=== PATIENT | male | born 1955 | race Caucasian/White ===

== ENCOUNTER 2024-03-13 04:31 | Observation (INO) ==
--- NOTE | 2024-03-13 04:50 | Emergency Department Note ---
Impression & Plan Acute and chronic respiratory failure with hypoxia, CKD (chronic kidney disease), Hypomagnesemia, Hyponatremia ED Provider Note ED Provider Note NAME: AMAIRANI GARCIA AGE:69 SEX: Male : 1955 ARRIVES VIA: EMS INFORMANT: Patient, EMS ED PROVIDER(s): Sanjuana Cyr DO CHIEF COMPLAINT: Shortness of breath HPI: This is a 69-year-old male presents emergency department due to concern for increased shortness of breath. Patient found by staff to be tachypneic with severe respiratory distress, cyanotic in appearance and oxygen saturations in the 70s. He was given 3 nebulizer treatments prior to EMS arrival as staff thought they heard wheezing. EMS reports patient was still in distressed upon their arrival, and staff at [facility] had transitioned him to BiPAP. EMS continued him on CPAP during their transportation and patient saturations improved to 90%. He was able to slowly began to talk to them and denied any other complaints. Patient denies feeling more short of breath today compared to normal. He states he does have a history of COPD and CKD and would be due for dialysis this morning. He denies missing or skipping any dialysis treatments. He states he was recently hospitalized for pneumonia. He states he does have oxygen to wear as needed, typically 5 L/min. He denies any current chest pain, abdominal pain, recent leg swelling, fevers, change in cough or change in sputum. Patient states has been on dialysis for 6 years, he does still make urine. PAST MEDICAL HISTORY:See Below PAST SURGICAL HISTORY:See Below FAMILY HISTORY:See Below SOCIAL HISTORY:See Below HOME MEDICATIONS:See Below ALLERGIES:See Below VITALS:See Below PHYSICAL EXAMINATION: GENERAL: alert, unwell appearing, well nourished, no distress, CPAP in place EYE EXAM: normal conjunctiva, PERRL and EOM's grossly intact OROPHARYNX: no exudate, no erythema, lips, buccal mucosa, and tongue normal and mucous membranes are dry NECK: supple, no nuchal rigidity, no adenopathy, non-tender LUNGS: Clear to auscultation. Normal chest wall mechanics, no w/r/r HEART: no murmurs, S1 normal and S2 normal ABDOMEN: abdomen soft, non-tender, normo-active bowel sounds, no masses, no rebound or guarding. SKIN: no rashes, petechiae, orbruising UPPER EXTREMITIES: upper extremities are grossly normal. FROM, nml pulses b/l. Fistula noted left upper extremity. LOWER EXTREMITIES: No pitting edema. FROM, nml pulses b/l. NEURO EXAM: Normal sensorium, cranial nerves II-XII grossly intact, normal speech, no facial droop,nogross weakness of arms, no gross weakness of legs. Gross sensation intact. No ataxia. Vital Signs: reviewed and remarkable Differential Diagnosis: pneumonia, bronchitis, COPD/Asthma exacerbation, pneumothorax, pulmonary embolism, congestive heart failure, acute coronary syndrome, as well as others were considered MEDICAL DECISION MAKING: This is a 69-year-old male presents emerged department by EMS on CPAP due to respiratory distress and hypoxia. Patient was awake and talking on arrival with improved appearance based on their description and oxygen saturations of 92%. Labs drawn and sent, IV established, EKG and chest x-ray performed at bedside interpreted by me and patient continued to be monitored on telemetry. Patient denied any chest pain abdominal pain, fevers or worsening cough. Nasal swab obtained and sent additionally. Chest x-ray with increased interstitial markings, no focal consolidation. Patient with recent admission for pneumonia although no available reports illness at this time. Will attempt to track down additional information from [facility] and ultimately from hospital where he was admitted. POC BMP with potassium of 5, elevated creatinine as patient is due for dialysis today. No acute EKG changes. Patient continue be monitored while on BiPAP here and continued to remain well-appearing regarding his respiratory effort and hypoxia. He was able to speak in full sentences and reported feeling improved. I did review information that came with from [facility] and case management was able to contact them and have them fax over his initial admission information. I did review his current medications. Patient noted to be anemic however stable compared to prior. Elevated creatinine likely from patient being due for dialysis. No significant hyperkalemia. Case discussed with the hospitalist team for additional evaluation and management. Labs were still pending at this time including the patient's CMP, troponin, and BNP as well as the bio fire. Ultimately bio fire negative. Troponin elevated however likely secondary to chronic kidney disease. BNP elevated as well however likely secondary to renal dysfunction. Consultation(s): 0530: Discussed with Dr. Abdullahi, [facility] hospitalist team, for additional evaluation and mgmt. 0600: Additional information including the admitting documentation to [facility] arrived on the patient. It notes that he was previously admitted for pneumonia and hypoxic respiratory failure at [facility]. I did ask the clerical secretary to contact them for further release of information regarding his hospitalization there. ER Treatment Provided: See below Diagnostics Interpreted By Me: -ECG: Normal sinus at 74, normal axis, normal intervals, no acute ST/T wave changes -Cardiac Monitoring: An order was placed for continuous cardiac monitoring. The monitor shows a rate of 70 with normal sinus rhythm. -Laboratory studies: As stated above and show below. -Imaging studies: cxr: Increased interstitial markings bilaterally worse on the left than right, no wide mediastinum, no pleural effusions, mild cardiomegaly Triage Nursing Note Reviewed Prior/Outside Records Reviewed -medication records from [facility] reviewed Critical Care: Critical care of 42 min performed to assess and manage high likelihood of life- threatening acute hypoxic respiratory, involving labs and imaging performed with assessment to evaluate respiratory distress and hypoxia diagnosis with frequent reassessment. This time includes bedside time, treatment discussions with patient/family/consultants, documentation time and excludes procedure time. Past Med/Surg History Problem List (Updated 03/13/24 @ 06:54 by Sanjuana Cyr, ) Hyponatremia (Acute) Hypomagnesemia (Acute) CKD (chronic kidney disease) (Acute) Acute and chronic respiratory failure with hypoxia (Acute) Social History Smoking Status: Former smoker Preferred Language: Croatian Feels Safe at Home: Yes Allergies Allergies Allergy/AdvReac Type Severity Reaction Status Date / Time No Known Drug Allergies Allergy Unknown Unknown Verified 03/13/24 04:59 Home Meds Home Medications Medication Instructions Recorded Confirmed acetaminophen 650 mg tablet 650 mg PO Q4H PRN Pain, Mild 03/13/24 03/13/24 amlodipine 10 mg tablet 10 mg PO PM 03/13/24 03/13/24 atorvastatin 20 mg tablet 20 mg PO PM 03/13/24 03/13/24 bisacodyl 10 mg rectal suppository 10 mg ND DAILY PRN Constipation 03/13/24 03/13/24 bisoprolol fumarate 5 mg tablet 5 mg PM 03/13/24 03/13/24 budesonide 0.25 mg/2 mL suspension See Protocol BID 03/13/24 03/13/24 for nebulization calcitriol 0.25 mcg capsule 0.25 mcg PO BLANK 03/13/24 03/13/24 cinacalcet 90 mg tablet 90 mg PO BLANK 03/13/24 03/13/24 darbepoetin son in polysorbat 100 100 mcg BLANK 03/13/24 03/13/24 mcg/0.5 mL in polysorbate injection syringe docusate sodium 100 mg capsule 100 mg PO BID 03/13/24 03/13/24 docusate sodium 50 mg capsule 50 mg PO DAILY PRN Constipation 03/13/24 03/13/24 formoterol fumarate 20 mcg/2 mL 2 ml inhalation BID 03/13/24 03/13/24 solution for nebulization heparin, porcine (PF) 5,000 5,000 unit subcut Q12H 03/13/24 03/13/24 unit/mL injection syringe ipratropium bromide 0.02 % 2.5 ml inhalation QID 03/13/24 03/13/24 solution for inhalation levothyroxine 200 mcg tablet 200 mcg PO DAILY 03/13/24 03/13/24 lidocaine-prilocaine 2.5 %-2.5 % 1 applic topical BLANK 03/13/24 03/13/24 topical cream ondansetron 4 mg disintegrating 4 mg PO Q4-5H PRN Nausea And 03/13/24 03/13/24 tablet Vomiting pantoprazole 40 mg tablet,delayed 40 mg PO BIDWMEAL 03/13/24 03/13/24 release polyethylene glycol 17 ea miscellaneous DAILY PRN 03/13/24 03/13/24 Constipation prednisone 10 mg tablet 10 mg PO DAILY 03/13/24 03/13/24 sacubitril 24 mg-valsartan 26 mg 1 tab PO BID 03/13/24 03/13/24 tablet sertraline 50 mg tablet 50 mg PO QPM 03/13/24 03/13/24 Results & Data (ED) Vital Signs Vital Signs - 24 hr 03/13/24 04:37 03/13/24 04:38 03/13/24 04:43 Temperature 36.5 C Temperature Source Axillary Pulse Rate 74 73 71 Pulse Rate from SpO2 Sensor Respiratory Rate 15 23 Respiratory Effort / Characteristics Non-Labored Spontaneous Respiratory Depth Normal Respiratory Pattern Regular Blood Pressure 171/87 H Blood Pressure Mean 115 Pulse Oximetry 93 94 Oxygen Delivery Method BiPAP Fraction of Inspired Oxygen 50 Sepsis Recent Fever Within 48 Hours No Sepsis New/Unexplained Change in Mental Status No Sepsis Action Taken by Nursing No Action Required 03/13/24 04:44 03/13/24 04:44 03/13/24 05:06 Temperature Temperature Source Pulse Rate 72 Pulse Rate from SpO2 Sensor 74 Respiratory Rate 20 Respiratory Effort / Characteristics Respiratory Depth Respiratory Pattern Blood Pressure 176/84 H Blood Pressure Mean 114 Pulse Oximetry 94 93 Oxygen Delivery Method BiPAP BiPAP BiPAP Fraction of Inspired Oxygen 50 Sepsis Recent Fever Within 48 Hours Sepsis New/Unexplained Change in Mental Status Sepsis Action Taken by Nursing 03/13/24 05:50 Temperature Temperature Source Pulse Rate 71 Pulse Rate from SpO2 Sensor 74 Respiratory Rate 30 H Respiratory Effort / Characteristics Respiratory Depth Respiratory Pattern Blood Pressure Blood Pressure Mean Pulse Oximetry 90 Oxygen Delivery Method BiPAP Fraction of Inspired Oxygen Sepsis Recent Fever Within 48 Hours Sepsis New/Unexplained Change in Mental Status Sepsis Action Taken by Nursing Laboratory Data 03/13/24 04:40 03/13/24 04:40 Lab Results 03/13/24 03/13/24 Range/Units 04:40 04:46 WBC 9.82 (4.8-10.8) K/ul RBC 2.85 L (4.70-6.10) M/uL Hgb 10.1 L (14.0-18.0) g/dl POC Hgb 10.2 L (14.0-18.0) g/dl Hct 31.7 L (42.0-52.0) % POC Hct 30 L (42-52) % MCV 111.2 H (80.0-100.0) fL MCH 35.4 H (25.0-34.0) pg MCHC 31.9 L (32.0-36.0) g/dL RDW Std Deviation 79.6 H (36.4-46.3) fL RDW Coeff of Gabriela 19.2 H (11.5-14.5) % Plt Count 167 (130-400) K/uL MPV 10.5 (9.4-12.4) fL Immature Gran % (Auto) 0.7 % Neut % (Auto) 79.6 % Lymph % (Auto) 10.8 % Ward % (Auto) 6.7 % Eos % (Auto) 1.9 % Baso % (Auto) 0.3 % Neut # (Auto) 7.81 H (1.40-6.50) K/uL Lymph # (Auto) 1.06 L (1.20-3.40) K/uL Ward # (Auto) 0.66 H (0.11-0.59) K/uL Eos # (Auto) 0.19 (0.00-0.50) K/uL Baso # (Auto) 0.03 (0.00-0.20) K/uL Immature Gran # (Auto) 0.07 (0.01-0.20) K/uL Polychromasia 1+ Macrocytosis Present VBG pH 7.45 H (7.36-7.41) VBG pCO2 44 (38-50) mmHg VBG pO2 Not Reportable VBG HCO3 31 mmol/L VBG O2 Saturation 65.5 % VBG Base Excess 5.8 mEq/L POC Sodium 133 L (135-144) mmol/L Sodium 135 L (136-145) mmol/L POC Potassium 5.0 (3.3-5.0) mmol/L Potassium 4.8 (3.5-5.1) mmol/L POC Chloride 96 L (101-112) mmol/L Chloride 95 L (98-107) mmol/L Carbon Dioxide 29 (21-32) mmol/L POC Total CO2 30 (24-31) mmol/L Anion Gap 11 (3-11) POC Anion Gap 13.0 L (16-25) mmol/L POC BUN 60 H (7-18) mg/dl BUN 55 H (6-23) mg/dl Creatinine 4.55 H* (0.6-1.4) mg/dl POC Creatinine 4.7 H* (0.6-1.3) mg/dl Est Cr Clr Drug Dosing 14.9 ml/min Est GFR ( Amer) 14.0 ml/min Est GFR (Non-Af Amer) 12.1 ml/min BUN/Creatinine Ratio 12.1 (10-20) Glucose 82 (70-99(Fasting)) mg/dl POC Glucose (other) 82 (70-99) mg/dl Calcium 8.8 (8.6-10.3) mg/dl POC Ioniz Calcium Almaz 1.03 L (1.12-1.32) mmol/l Magnesium 1.6 L (1.7-2.4) mg/dl Total Bilirubin 0.7 (0.2-1.0) mg/dl AST 15 (13-39) U/L ALT 14 (7-52) U/L Alkaline Phosphatase 128 H (34-104) U/L Troponin I High Sens 27.4 H (0-20) pg/ml B-Natriuretic Peptide 4612 H (0-100) pg/ml Total Protein 6.0 (6.0-8.3) gm/dl Albumin 4.0 (3.4-5.0) gm/dl Globulin 2.0 L (2.5-4.0) gm/dl Albumin/Globulin Ratio 2.0 (0.9-2) TSH 8.922 H (0.300-4.500) uIu/ml Adenovirus (PCR) Not Detected (NotDetected) B. pertussis DNA (PCR) Not Detected (NotDetected) B.parapertussis DNA PCR Not Detected (NotDetected) C. pneumoniae DNA (PCR) Not Detected (NotDetected) Coronavirus OC43 (PCR) Not Detected (NotDetected) Coronavirus HKU1 (PCR) Not Detected (NotDetected) Coronavirus 229E (PCR) Not Detected (NotDetected) SARS-CoV-2 (PCR) Not Detected (NotDetected) Coronavirus NL63 (PCR) Not Detected (NotDetected) Human Metapneumovir PCR Not Detected (NotDetected) Influenza Type A (PCR) Not Detected (NotDetected) Influenza Type B (PCR) Not Detected (NotDetected) M. pneumoniae (PCR) Not Detected (NotDetected) Parainfluenza 1 (PCR) Not Detected (NotDetected) Parainfluenza 2 (PCR) Not Detected (NotDetected) Parainfluenza 3 (PCR) Not Detected (NotDetected) Parainfluenza 4 (PCR) Not Detected (NotDetected) RSV (PCR) Not Detected (NotDetected) Entero/Rhino (PCR) Not Detected (NotDetected) Administered Medications Discontinued Medications Furosemide (Furosemide 40 Mg/4 Ml Vial) 100 mg IV ONE ONE Stop: 03/13/24 05:36 Last Admin: 03/13/24 06:25 Dose: 100 mg Documented By: GODWIN Discharge Plan Visit Data Chief Complaint: Shortness of Breath/Dyspnea Stated Complaint: RESPATORY DISTRESS ED Provider: Sanjuana Cyr Discharge Problem: Acute and chronic respiratory failure with hypoxia, CKD (chronic kidney disease), Hypomagnesemia, Hyponatremia Forms Stand Alone Forms: My [facility] Prescriptions Prescriptions: No Action prednisone 10 mg Tablet 10 mg PO DAILY atorvastatin 20 mg Tablet 20 mg PO PM docusate sodium 50 mg Capsule 50 mg PO DAILY PRN (Reason: Constipation) acetaminophen 650 mg Tablet 650 mg PO Q4H PRN (Reason: Pain, Mild) lidocaine-prilocaine 2.5-2.5 % Cream 1 applic topical BLANK Rx Instructions: QMWF bisoprolol fumarate 5 mg Tablet 5 mg PM amlodipine 10 mg Tablet 10 mg PO PM bisacodyl 10 mg Suppository 10 mg ND DAILY PRN (Reason: Constipation) pantoprazole 40 mg Tablet,Delayed Release (Dr/Ec) 40 mg PO BIDWMEAL docusate sodium 100 mg Capsule 100 mg PO BID budesonide 0.25 mg/2 mL Suspension For Nebulization See Protocol BID Protocol: Nursing Decision Medication Order Protocol Text: 1. Dispensed by Pharmacy (Requires a written order by the nurse, unless noted otherwise). Artificial Saliva Aerozoin [place] Cepacol Lozenges (in Automated Drug Distribution Machine) Eucerin Cream Lacrilube Lidocaine (Xylocaine) 2% Jelly for urinary catheter insertion) Miconazole (Desenex) Powder [place] Nasal [place] (or generic) 2. On PAR from Supply Distribution (no written order required) A&D Ointment Artificial Tears Biotene Oral [place] Desitin Ointment Dermoplast [place] Eucerin Lotion Hydrogen peroxide Lanolin Lip Savvy Tucks White Petrolatum Zinc Oxide levothyroxine 200 mcg Tablet 200 mcg PO DAILY ondansetron 4 mg Tablet,Disintegrating 4 mg PO Q4-5H PRN (Reason: Nausea And Vomiting) sertraline 50 mg Tablet 50 mg PO QPM calcitriol 0.25 mcg Capsule 0.25 mcg PO BLANK Rx Instructions: Q Tu,Thur,Sat ipratropium bromide 0.02 % Solution 2.5 ml INHALATION QID polyethylene glycol Powder 17 ea miscellaneous DAILY PRN (Reason: Constipation) cinacalcet 90 mg Tablet 90 mg PO BLANK Rx Instructions: Qdinner heparin, porcine (PF) 5,000 unit/mL Syringe 5,000 unit SUBCUT Q12H darbepoetin son in polysorbat 100 mcg/0.5 mL Syringe 100 mcg BLANK Rx Instructions: Q7days formoterol fumarate 20 mcg/2 mL Solution For Nebulization 2 ml INHALATION BID sacubitril-valsartan 24-26 mg Tablet 1 tab PO BID Referrals Referrals: Hung Arreola, [Outside Practitioners] -
[2024-03-13 04:55] LABS: Base Excess VBG 5.8 mEq/L; HCO3 VBG 31 mmol/L; Oxygen Saturation VBG 65.5 %; PCO2 VBG 44 mmHg (38-50); pH VBG 7.45 (7.36-7.41)
[2024-03-13 05:00] LABS: iSTAT Creatinine 4.7 mg/dl (0.6-1.3); iSTAT Hemoglobin 10.2 g/dl (14.0-18.0); iSTAT Ionized Calcium 1.03 mmol/l (1.12-1.32)
[2024-03-13 05:05] LABS: Basophils # (auto) 0.03 K/uL (0.00-0.20); Basophils % (auto) 0.3 %; Eosinophils # (auto) 0.19 K/uL (0.00-0.50); Eosinophils % (auto) 1.9 %; Hematocrit (blood only) 31.7 % (42.0-52.0); Hemoglobin 10.1 g/dl (14.0-18.0); Immature Granulocytes # (auto) 0.07 K/uL (0.01-0.20); Immature Granulocytes % (auto) 0.7 %; Lymphocytes # (auto) 1.06 K/uL (1.20-3.40); Lymphocytes % (auto) 10.8 %; Mean Corpuscular Hemoglobin 35.4 pg (25.0-34.0); Mean Corpuscular Hgb Conc 31.9 g/dL (32.0-36.0); Mean Corpuscular Volume 111.2 fL (80.0-100.0); Mean Platelet Volume 10.5 fL (9.4-12.4); Monocytes # (auto) 0.66 K/uL (0.11-0.59); Monocytes % (auto) 6.7 %; Neutrophils # (auto) 7.81 K/uL (1.40-6.50); Neutrophils % (auto) 79.6 %; Platelet Count 167 K/uL (130-400); RDW Coefficient of Variation 19.2 % (11.5-14.5); RDW Standard Deviation 79.6 fL (36.4-46.3); Red Blood Count 2.85 M/uL (4.70-6.10); White Blood Count 9.82 K/ul (4.8-10.8)
[2024-03-13 05:30] LABS: Macrocytosis Present; Polychromasia 1+
[2024-03-13 05:36] LABS: BUN Creatinine Ratio 12.1 (10-20); Bilirubin,Total 0.7 mg/dl (0.2-1.0); Calcium 8.8 mg/dl (8.6-10.3); Creatinine Clr Calc Pharmacy 14.9 ml/min; Est GFR (Non-African American) 12.1 ml/min; Magnesium 1.6 mg/dl (1.7-2.4); Potassium 4.8 mmol/L (3.5-5.1); Troponin I High Sensitivity 27.4 pg/ml (0-20)
[2024-03-13 05:46] LABS: Adenovirus PCR Not Detected (NotDetected); Bordetella parapertussis PCR Not Detected (NotDetected); Bordetella pertussis PCR Not Detected (NotDetected); Chlamydia pneumoniae PCR Not Detected (NotDetected); Coronavirus 229E PCR Not Detected (NotDetected); Coronavirus CoV-2 (COVID19)PCR Not Detected (NotDetected); Coronavirus HKU1 PCR Not Detected (NotDetected); Coronavirus NL63 PCR Not Detected (NotDetected); Coronavirus OC43PCR Not Detected (NotDetected); Human Metapneumovirus PCR Not Detected (NotDetected); Influenza A PCR Not Detected (NotDetected); Influenza B PCR Not Detected (NotDetected); Mycoplasma pneumoniae PCR Not Detected (NotDetected); Parainfluenza Virus 1 PCR Not Detected (NotDetected); Parainfluenza Virus 2 PCR Not Detected (NotDetected); Parainfluenza Virus 3 PCR Not Detected (NotDetected); Parainfluenza Virus 4 PCR Not Detected (NotDetected); Respiratory Syncytial VirusPCR Not Detected (NotDetected); Rhinovirus/Enterovirus PCR Not Detected (NotDetected)
--- NOTE | 2024-03-13 06:16 | History & Physical Report ---
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 Heparin subcu Full code I discussed case with Dr. Cruz of Nephrology. Total critical care time was 45 minutes. Text document was generated using [employer] voice recognition software. It may contain grammatical or spelling errors. Kindly contact undersigned for clarification of any documentation item in question. History of Present Illness Chief Complaint: Shortness of breath, hypoxemia Primary Care Provider: Len Ibrahim, History obtained from patient and records. 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 Recent prolonged confinement at [facility] from February 07 to March 06, 2024 for sigmoid colitis, COPD exacerbation and pneumonia. 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 Patient with sudden onset SOB last night. No unusual cough symptoms or chest pain. Compliant with Wednesday dialysis. O2 sats 60s to 70s upon EMS arrival. Patient placed on BiPAP. Patient brought to ER for evaluation. Medical History as above Surgical History : Prostatectomy, appendectomy Family History : Prostate cancer, breast cancer, brain cancer, DM, heart disease, stroke Personal/Social history : Past tobacco abuse, no EtOH intake, retired salesman Allergies Allergy/AdvReac Type Severity Reaction Status Date / Time No Known Drug Allergies Allergy Unknown Unknown Verified 03/13/24 04:59 Home Medications Medication Instructions Recorded Confirmed Type acetaminophen 650 mg tablet 650 mg PO Q4H PRN Pain, Mild 03/13/24 03/13/24 History amlodipine 10 mg tablet 10 mg PO PM 03/13/24 03/13/24 History atorvastatin 20 mg tablet 20 mg PO PM 03/13/24 03/13/24 History bisacodyl 10 mg rectal suppository 10 mg AK DAILY PRN Constipation 03/13/24 03/13/24 History bisoprolol fumarate 5 mg tablet 5 mg PM 03/13/24 03/13/24 History budesonide 0.25 mg/2 mL suspension See Protocol BID 03/13/24 03/13/24 History for nebulization calcitriol 0.25 mcg capsule 0.25 mcg PO BLANK 03/13/24 03/13/24 History cinacalcet 90 mg tablet 90 mg PO BLANK 03/13/24 03/13/24 History darbepoetin son in polysorbat 100 100 mcg BLANK 03/13/24 03/13/24 History mcg/0.5 mL in polysorbate injection syringe docusate sodium 100 mg capsule 100 mg PO BID 03/13/24 03/13/24 History docusate sodium 50 mg capsule 50 mg PO DAILY PRN Constipation 03/13/24 03/13/24 History formoterol fumarate 20 mcg/2 mL 2 ml inhalation BID 03/13/24 03/13/24 History solution for nebulization heparin, porcine (PF) 5,000 5,000 unit subcut Q12H 03/13/24 03/13/24 History unit/mL injection syringe ipratropium bromide 0.02 % 2.5 ml inhalation QID 03/13/24 03/13/24 History solution for inhalation levothyroxine 200 mcg tablet 200 mcg PO DAILY 03/13/24 03/13/24 History lidocaine-prilocaine 2.5 %-2.5 % 1 applic topical BLANK 03/13/24 03/13/24 History topical cream ondansetron 4 mg disintegrating 4 mg PO Q4-5H PRN Nausea And 03/13/24 03/13/24 History tablet Vomiting pantoprazole 40 mg tablet,delayed 40 mg PO BIDWMEAL 03/13/24 03/13/24 History release polyethylene glycol 17 ea miscellaneous DAILY PRN 03/13/24 03/13/24 History Constipation prednisone 10 mg tablet 10 mg PO DAILY 03/13/24 03/13/24 History sacubitril 24 mg-valsartan 26 mg 1 tab PO BID 03/13/24 03/13/24 History tablet sertraline 50 mg tablet 50 mg PO QPM 03/13/24 03/13/24 History Past Med/Surg History Problem List (Updated 03/13/24 @ 11:28 by Ham Hopper MD) ESRD (end stage renal disease) on dialysis Hyponatremia (Acute) Hypomagnesemia (Acute) CKD (chronic kidney disease) (Acute) Acute and chronic respiratory failure with hypoxia (Acute) Social History Smoking Status: Former smoker Hx Alcohol Use: No Hx Substance Use: No Preferred Language: Mongolian Communication Ability: Effective 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 Beliefs That Will Affect Care: None Current Living Situation: Spouse Other Information That Helps Us Care for You: No Feels Safe at Home: Yes Safety Concerns: Feels Safe At This Time Assistive Devices: Oxygen - Continuous Review of Systems Review of Systems: As per HPI, all other systems reviewed and negative Physical Exam Physical Exam: GENERAL: Slightly uncomfortable, minimal respiratory distress SKIN: Pallor, warm HEENT: Pale palpebral conjunctivae, no ptosis, dry buccal mucosa, BiPAP in place NECK : Supple, no tenderness CHEST : Decreased breath sounds, no tenderness HEART : RRR, no obvious murmurs ABDOMEN: Some distention, nontender EXTREMITIES : Minimal LE swelling, no LE tenderness, no other conspicuous deformities noted NEUROLOGIC : Coherent, no facial asymmetry, no other gross focality Results & Data Results & Data Vital Signs (Past 12 Hours) Vital Signs Temp Pulse Resp BP Pulse Ox O2 Del Method FiO2 03/13/24 05:50 71 30 H 90 BiPAP 03/13/24 05:06 72 20 176/84 H 93 BiPAP 03/13/24 04:44 BiPAP 50 03/13/24 04:44 94 BiPAP 03/13/24 04:43 71 23 94 50 03/13/24 04:38 73 03/13/24 04:37 36.5 C 74 15 171/87 H 93 BiPAP Laboratory Results Laboratory Results WBC 9.82 K/ul (4.8-10.8) 03/13/24 04:40 RBC 2.85 M/uL (4.70-6.10) L 03/13/24 04:40 Hgb 10.1 g/dl (14.0-18.0) L 03/13/24 04:40 POC Hgb 10.2 g/dl (14.0-18.0) L 03/13/24 04:46 Hct 31.7 % (42.0-52.0) L 03/13/24 04:40 POC Hct 30 % (42-52) L 03/13/24 04:46 MCV 111.2 fL (80.0-100.0) H 03/13/24 04:40 MCH 35.4 pg (25.0-34.0) H 03/13/24 04:40 MCHC 31.9 g/dL (32.0-36.0) L 03/13/24 04:40 RDW Std Deviation 79.6 fL (36.4-46.3) H 03/13/24 04:40 RDW Coeff of Gabriela 19.2 % (11.5-14.5) H 03/13/24 04:40 Plt Count 167 K/uL (130-400) 03/13/24 04:40 MPV 10.5 fL (9.4-12.4) 03/13/24 04:40 Immature Gran % (Auto) 0.7 % 03/13/24 04:40 Neut % (Auto) 79.6 % 03/13/24 04:40 Lymph % (Auto) 10.8 % 03/13/24 04:40 [place] % (Auto) 6.7 % 03/13/24 04:40 Eos % (Auto) 1.9 % 03/13/24 04:40 Baso % (Auto) 0.3 % 03/13/24 04:40 Neut # (Auto) 7.81 K/uL (1.40-6.50) H 03/13/24 04:40 Lymph # (Auto) 1.06 K/uL (1.20-3.40) L 03/13/24 04:40 [place] # (Auto) 0.66 K/uL (0.11-0.59) H 03/13/24 04:40 Eos # (Auto) 0.19 K/uL (0.00-0.50) 03/13/24 04:40 Baso # (Auto) 0.03 K/uL (0.00-0.20) 03/13/24 04:40 Immature Gran # (Auto) 0.07 K/uL (0.01-0.20) 03/13/24 04:40 Polychromasia 1+ 03/13/24 04:40 Macrocytosis Present 03/13/24 04:40 VBG pH 7.45 (7.36-7.41) H 03/13/24 04:40 VBG pCO2 44 mmHg (38-50) 03/13/24 04:40 VBG pO2 Not Reportable 03/13/24 04:40 VBG HCO3 31 mmol/L 03/13/24 04:40 VBG O2 Saturation 65.5 % 03/13/24 04:40 VBG Base Excess 5.8 mEq/L 03/13/24 04:40 POC Sodium 133 mmol/L (135-144) L 03/13/24 04:46 Sodium 135 mmol/L (136-145) L 03/13/24 04:40 POC Potassium 5.0 mmol/L (3.3-5.0) 03/13/24 04:46 Potassium 4.8 mmol/L (3.5-5.1) 03/13/24 04:40 POC Chloride 96 mmol/L (101-112) L 03/13/24 04:46 Chloride 95 mmol/L (98-107) L 03/13/24 04:40 Carbon Dioxide 29 mmol/L (21-32) 03/13/24 04:40 POC Total CO2 30 mmol/L (24-31) 03/13/24 04:46 Anion Gap 11 (3-11) 03/13/24 04:40 POC Anion Gap 13.0 mmol/L (16-25) L 03/13/24 04:46 POC BUN 60 mg/dl (7-18) H 03/13/24 04:46 BUN 55 mg/dl (6-23) H 03/13/24 04:40 Creatinine 4.55 mg/dl (0.6-1.4) H* 03/13/24 04:40 POC Creatinine 4.7 mg/dl (0.6-1.3) H* 03/13/24 04:46 Est Cr Clr Drug Dosing 14.9 ml/min 03/13/24 04:40 Est GFR ( Amer) 14.0 ml/min 03/13/24 04:40 Est GFR (Non-Af Amer) 12.1 ml/min 03/13/24 04:40 BUN/Creatinine Ratio 12.1 (10-20) 03/13/24 04:40 Glucose 82 mg/dl (70-99(Fasting)) 03/13/24 04:40 POC Glucose (other) 82 mg/dl (70-99) 03/13/24 04:46 Calcium 8.8 mg/dl (8.6-10.3) 03/13/24 04:40 POC Ioniz Calcium Almaz 1.03 mmol/l (1.12-1.32) L 03/13/24 04:46 Magnesium 1.6 mg/dl (1.7-2.4) L 03/13/24 04:40 Total Bilirubin 0.7 mg/dl (0.2-1.0) 03/13/24 04:40 AST 15 U/L (13-39) 03/13/24 04:40 ALT 14 U/L (7-52) 03/13/24 04:40 Alkaline Phosphatase 128 U/L (34-104) H 03/13/24 04:40 Troponin I High Sens 27.4 pg/ml (0-20) H 03/13/24 04:40 B-Natriuretic Peptide 4612 pg/ml (0-100) H 03/13/24 04:40 Total Protein 6.0 gm/dl (6.0-8.3) 03/13/24 04:40 Albumin 4.0 gm/dl (3.4-5.0) 03/13/24 04:40 Globulin 2.0 gm/dl (2.5-4.0) L 03/13/24 04:40 Albumin/Globulin Ratio 2.0 (0.9-2) 03/13/24 04:40 Adenovirus (PCR) Not Detected (NotDetected) 03/13/24 04:40 B. pertussis DNA (PCR) Not Detected (NotDetected) 03/13/24 04:40 B.parapertussis DNA PCR Not Detected (NotDetected) 03/13/24 04:40 C. pneumoniae DNA (PCR) Not Detected (NotDetected) 03/13/24 04:40 Coronavirus OC43 (PCR) Not Detected (NotDetected) 03/13/24 04:40 Coronavirus HKU1 (PCR) Not Detected (NotDetected) 03/13/24 04:40 Coronavirus 229E (PCR) Not Detected (NotDetected) 03/13/24 04:40 SARS-CoV-2 (PCR) Not Detected (NotDetected) 03/13/24 04:40 Coronavirus NL63 (PCR) Not Detected (NotDetected) 03/13/24 04:40 Human Metapneumovir PCR Not Detected (NotDetected) 03/13/24 04:40 Influenza Type A (PCR) Not Detected (NotDetected) 03/13/24 04:40 Influenza Type B (PCR) Not Detected (NotDetected) 03/13/24 04:40 M. pneumoniae (PCR) Not Detected (NotDetected) 03/13/24 04:40 Parainfluenza 1 (PCR) Not Detected (NotDetected) 03/13/24 04:40 Parainfluenza 2 (PCR) Not Detected (NotDetected) 03/13/24 04:40 Parainfluenza 3 (PCR) Not Detected (NotDetected) 03/13/24 04:40 Parainfluenza 4 (PCR) Not Detected (NotDetected) 03/13/24 04:40 RSV (PCR) Not Detected (NotDetected) 03/13/24 04:40 Entero/Rhino (PCR) Not Detected (NotDetected) 03/13/24 04:40 Diagnostic Findings Chest x-ray cardiomegaly, congestion more in the left EKG as per my interpretation : Rate 75, NSR, normal axis, T wave abnormalities lateral leads
[2024-03-13] MEDS ORDERED: PROMETHAZINE 6.25 MG/50.25 ML BAG IV PRN (06:20)
[2024-03-13] MEDS ORDERED: bisacodyL 10 MG SUPP PR PRN (06:22)
[2024-03-13] MEDS: FUROSEMIDE 40 MG/4 ML VIAL IV ONE (06:25)
[2024-03-13 06:43] LABS: Thyroid Stimulating Hormone 8.922 uIu/ml (0.300-4.500)
[2024-03-13] MEDS: OPTIRAY 320 125ml IV ONE (06:46)
--- NOTE | 2024-03-13 06:59 | XRay Report ---
XR chest 1V portable CLINICAL HISTORY: Dyspnea TECHNIQUE: Single frontal radiograph of the chest was obtained. Comparison: None available at the time of this dictation. FINDINGS: No lines and tubes are seen. Cardiomegaly is noted. The aortic arch is calcified. Multifocal airspace opacities are seen. Small left pleural effusion. IMPRESSION: Multifocal airspace opacities may represent atelectasis, pneumonia, and/or aspiration. Cardiomegaly a nd small left pleural effusion. ACT 112: Negative or not required by law. Electronically signed by: Hung Johnston M.D. 03/13/2024 6:58 AM
--- NOTE | 2024-03-13 07:05 | CT Scan Report ---
CT angio chest PE protocol CLINICAL HISTORY: sudden sob, esrs, px david have dialysis today TECHNIQUE: Multidetector row helical CT of the chest was performed with angiographic protocol. Lopez l and sagittal reformations were obtained. Coronal and sagittal MIPS were obtained from the axial mj a set and were submitted for review. Automated dose lowering techniques and/or adjustment according to patient size were utilized for this exam. CT DOSE: 847.86 mGy.cm Comparison: Comparison is made to chest radiograph 03/13/2024 FINDINGS: Lungs and pleura: Diffuse centrilobular emphysema is seen most prominent in the upper lobes. Small bi lateral pleural effusions and underlying atelectasis are seen. Heart and pericardium: Cardiomegaly is seen with biatrial enlargement. Vessels: No evidence of pulmonary embolism. Pulmonary trunk measures 37 mm in diameter. Incidental no te is made of a left subclavian stent. Mediastinum and danielle: Subcentimeter lymph nodes are seen. Chest wall and lower neck: Unremarkable. Abdomen: A hiatal hernia is seen. Multicystic appearance of the kidneys noted. Bones: Degenerative changes in the thoracic spine. IMPRESSION: 1. No pulmonary embolus. 2. Extensive emphysema. Bronchial wall thickening may represent infectious/inflammatory airways dise ase. Pulmonary hypertension. 3. Small bilateral pleural effusions. ACT 112: Negative or not required by law. Electronically signed by: Hung Johnston M.D. 03/13/2024 7:03 AM
[2024-03-13] MEDS ORDERED: POLYETHYLENE (MIRALAX) 17 GM PACK PO PRN (07:06)
[2024-03-13] MEDS: ALBUT/IPRATROP 3MG/0.5MG NEB 3 ML VIAL NEB STA (07:07)
[2024-03-13] MEDS: MAGNESIUM SULFATE / D5W 1 GM/100 ML BAG IV ONE (07:16)
[2024-03-13 07:18] LABS: T4 Free Thyroxine 1.05 ng/dl (0.61-1.60)
--- NOTE | 2024-03-13 11:26 | Nephrology Consultation ---
Date of Consultation March 13, 2024 Assessment & Plan (1) Acute and chronic respiratory failure with hypoxia: He has Advanced COPD already with high o2 need. Lot of it is Chronic. CXR and CTA reviewed and shows--Multifocal airspace opacities may represent atelectasis, pneumonia, and/or aspiration. Cardiomegaly and small left pleural effusion. will try to remove 3--3.5 kilo today with dialysis. However pulm/infection issues also playing major role here. Would give AbX also. (2) ESRD (end stage renal disease) on dialysis: Chronic ESRD on dialysis with AVF for last few years. ESRD sec to PCKD. has good AVF. lab works is consistent with ESRD . K is fine No severe fluid overload noted but given presenting Symptom and CXR/CT findings will try 3.5 kilo fluid off. hgb is fine at 10+. will give Epogen similar to his dose at rehab. Plan Time spent 55 mins in total with emergent Call taken from ED and emergent dialysis plan made. Also coordinating with outpt dialysis and rehab hospital. History of Present Illness Attending Physician: Valerie Taylor MD History of Present Illness 69/M with ESRD on Dialysis --MWF and has been on dialysis last few years at [facility] [place]. 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 Recent prolonged confinement at [facility] from February 07 to March 06, 2024 for sigmoid colitis, COPD exacerbation and pneumonia. 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 He has been there for about 1 week and had dialysis Wednesday. . Patient transferred from rehab to ED because of sudden onset SOB last night and Hypoxia.. No unusual cough symptoms or chest pain. Compliant with Wednesday dialysis. O2 sats 60s to 70s upon EMS arrival. Patient placed on BiPAP. We then proceeded with emergent dialysis. However patient got back to baseline o2 status quickly. getting dialysis now. ROS-----Some SOB but feels he is now back to baseline status already. Physical Exam Physical Exam: GENERAL: Mild respiratory distress HEENT: Pale . No JVD. Neck Supple. CHEST : Decreased breath sounds, no tenderness HEART : RRR, no obvious murmurs ABDOMEN: Soft nontender EXTREMITIES : No edema. AVF in place left UE NEUROLOGIC : Coherent, no facial asymmetry, no other gross focality Allergies Allergy/AdvReac Type Severity Reaction Status Date / Time No Known Drug Allergies Allergy Unknown Unknown Verified 03/13/24 04:59 Home Medications Medication Instructions Recorded Confirmed Type acetaminophen 650 mg tablet 650 mg PO Q4H PRN Pain, Mild 03/13/24 03/13/24 History amlodipine 10 mg tablet 10 mg PO PM 03/13/24 03/13/24 History atorvastatin 20 mg tablet 20 mg PO PM 03/13/24 03/13/24 History bisacodyl 10 mg rectal suppository 10 mg ID DAILY PRN Constipation 03/13/24 03/13/24 History bisoprolol fumarate 5 mg tablet 5 mg PM 03/13/24 03/13/24 History budesonide 0.25 mg/2 mL suspension See Protocol BID 03/13/24 03/13/24 History for nebulization calcitriol 0.25 mcg capsule 0.25 mcg PO BLANK 03/13/24 03/13/24 History cinacalcet 90 mg tablet 90 mg PO BLANK 03/13/24 03/13/24 History darbepoetin son in polysorbat 100 100 mcg BLANK 03/13/24 03/13/24 History mcg/0.5 mL in polysorbate injection syringe docusate sodium 100 mg capsule 100 mg PO BID 03/13/24 03/13/24 History docusate sodium 50 mg capsule 50 mg PO DAILY PRN Constipation 03/13/24 03/13/24 History formoterol fumarate 20 mcg/2 mL 2 ml inhalation BID 03/13/24 03/13/24 History solution for nebulization heparin, porcine (PF) 5,000 5,000 unit subcut Q12H 03/13/24 03/13/24 History unit/mL injection syringe ipratropium bromide 0.02 % 2.5 ml inhalation QID 03/13/24 03/13/24 History solution for inhalation levothyroxine 200 mcg tablet 200 mcg PO DAILY 03/13/24 03/13/24 History lidocaine-prilocaine 2.5 %-2.5 % 1 applic topical BLANK 03/13/24 03/13/24 History topical cream ondansetron 4 mg disintegrating 4 mg PO Q4-5H PRN Nausea And 03/13/24 03/13/24 History tablet Vomiting pantoprazole 40 mg tablet,delayed 40 mg PO BIDWMEAL 03/13/24 03/13/24 History release polyethylene glycol 17 ea miscellaneous DAILY PRN 03/13/24 03/13/24 History Constipation prednisone 10 mg tablet 10 mg PO DAILY 03/13/24 03/13/24 History sacubitril 24 mg-valsartan 26 mg 1 tab PO BID 03/13/24 03/13/24 History tablet sertraline 50 mg tablet 50 mg PO QPM 03/13/24 03/13/24 History Patient History Social History Smoking Status: Former smoker Hx Alcohol Use: No Hx Substance Use: No Preferred Language: Kuwaiti Communication Ability: Effective Occupational Therapy Aide Required: No Beliefs That Will Affect Care: None Current Living Situation: Spouse Other Information That Helps Us Care for You: No Feels Safe at Home: Yes Safety Concerns: Feels Safe At This Time Assistive Devices: Oxygen - Continuous Results & Data Vital Signs (Past 12 Hours) Vital Signs Temp Pulse Pulse Pulse Resp BP Pulse Ox 03/13/24 11:00 72 168/84 H 03/13/24 10:30 78 172/84 H 03/13/24 10:00 72 172/87 H 03/13/24 09:30 73 169/88 H 03/13/24 08:54 36.5 C 74 03/13/24 08:46 03/13/24 07:09 72 18 98 03/13/24 07:09 72 18 98 03/13/24 07:06 71 16 168/81 H 98 03/13/24 06:33 73 26 H 172/80 H 100 03/13/24 06:24 170/101 H 03/13/24 05:50 71 30 H 90 03/13/24 05:06 72 20 176/84 H 93 03/13/24 04:44 03/13/24 04:44 94 03/13/24 04:43 71 23 94 03/13/24 04:38 73 03/13/24 04:37 36.5 C 74 15 171/87 H 93 O2 Del Method FiO2 03/13/24 11:00 03/13/24 10:30 03/13/24 10:00 03/13/24 09:30 03/13/24 08:54 03/13/24 08:46 BiPAP 03/13/24 07:09 40 03/13/24 07:09 BiPAP 40 03/13/24 07:06 BiPAP 03/13/24 06:33 BiPAP 03/13/24 06:24 03/13/24 05:50 BiPAP 03/13/24 05:06 BiPAP 03/13/24 04:44 BiPAP 50 03/13/24 04:44 BiPAP 03/13/24 04:43 50 03/13/24 04:38 03/13/24 04:37 BiPAP
[2024-03-13 12:27] LABS: Hep B Surface Ag with confirm Negative (Negative)
[2024-03-13 12:36] LABS: Hepatitis B Surface Antibody Immune
--- NOTE | 2024-03-13 12:37 | Communication Note ---
Date of Service: March 13, 2024 Patient seen and examined in HD unit Alert and oriented to person place, year Denied any cough, SOB, chest pain CT PE did not show PE but noted emphysema, pulm HTN, small b/l pleural effusion Currently on 4L NC. Patient reports he is usually on 5L NC Will confirm baseline status with family HD per Nephro Other plans as detailed in H/P this AM
[2024-03-13] MEDS: predniSONE 10 MG TABLET PO SCH (13:52)
[2024-03-13] MEDS: LEVOTHYROXINE SODIUM 200 MCG TABLET PO SCH (13:52)
[2024-03-13] MEDS: VALSARTAN/SACUBITRIL 26/24MG TAB PO SCH (13:53)
[2024-03-13] MEDS: DOCUSATE SODIUM 100 MG CAP PO SCH (13:53)
[2024-03-13] MEDS: HEPARIN SOD 5,000 UNIT/0.5 ML VIAL SQ SCH ×2 (14:49→15:40)
[2024-03-13] MEDS: BUDESONIDE 0.25 MG/2 ML VIAL (PULMICORT) INH SCH (15:20)
[2024-03-13] MEDS: FORMOTEROL 20 MCG/2 ML VIAL INH SCH (15:21)
[2024-03-13] MEDS: ACETAMINOPHEN 325 MG TAB PO PRN (15:39)
--- OUTSIDE RECORDS SUMMARY | 2024-03-13 15:45 | External Medical Summary ---
Author Name Unknown Address Unknown Organization [id number]:LABORATORY [facility] [place] - [address] [place] [address] Laboratory Report Ordering Provider Test Date Status MELONY MURCIA 03/07/2024 06:04:05 Final Observation Date Value Abnormality Reference (Units ) Status Hep B surface Ag 03/07/2024 06:04:05 Negative Neg ative Final Performing Location [facility] - [address] [facility] [id number]
--- OUTSIDE RECORDS SUMMARY | 2024-03-13 15:45 | External Medical Summary ---
Author Name Unknown Address Unknown Organization [id number]:[facility] [place] [address] Laboratory Report Ordering Provider Test Date Status MELONY MURCIA 03/07/2024 06:04:05 Final Observation Date Value Abnormality Reference (Units ) Status Albumin 03/07/2024 06:04:05 3.6 Below low normal 3.8 -5.0 (g/dL) Final Performing Location [facility] [place] [address]
--- OUTSIDE RECORDS SUMMARY | 2024-03-13 15:45 | External Medical Summary ---
Author Name Unknown Address Unknown Organization [id number]:[facility]ORATORY [facility] [place] - [address] [place] [address] Laboratory Report Ordering Provider Test Date Status MELONY MURCIA 03/07/2024 06:04:05 Final Observation Date Value Abnormality Reference (Units ) Status Hep B Core IgM 03/07/2024 06:04:05 Negative Negat melinda Final Performing Location [facility] - [address] [place] [address]
--- OUTSIDE RECORDS SUMMARY | 2024-03-13 15:45 | External Medical Summary ---
Author Name Unknown Address Unknown Organization [id number]:[facility] [address] Laboratory Report Ordering Provider Test Date Status CLEO ARAUZ 03/07/2024 06:04:05 Final Observation Date Value Abnormality Reference (Units ) Status WBC, Total 03/07/2024 06:04:05 6.48 4.00-10.8 0 (K/uL) Final RBC 03/07/2024 06:04:05 2.98 4.50-5.25 (M/uL) Final Hemoglobin 03/07/2024 06:04:05 10.7 Below low normal 14 .0-16.8 (g/dL) Final HCT 03/07/2024 06:04:05 33.9 Below low normal 40. 0-48.4 (%) Final MCV 03/07/2024 06:04:05 113.8 82.0-99.5 (fL) Final MCH 03/07/2024 06:04:05 35.9 27.0-34.0 (pg) Final MCHC 03/07/2024 06:04:05 31.6 32.0-36.0 (g/dL) Final RDW 03/07/2024 06:04:05 20.4 11.5-15.5 (%) Final Platelets 03/07/2024 06:04:05 134 Below low normal 140 -400 (K/uL) Final MPV 03/07/2024 06:04:05 11.4 6.6-11.1 ( fL) Final Performing Location [facility] [address]
--- OUTSIDE RECORDS SUMMARY | 2024-03-13 15:45 | External Medical Summary ---
Author Name Unknown Address Unknown Organization [id number]:[facility] [place] [address] Laboratory Report Ordering Provider Test Date Status CLEO ARAUZ 03/07/2024 06:04:05 Final Observation Date Value Abnormality Reference (Units ) Status BUN 03/07/2024 06:04:05 28 Above high normal 6-20 (mg/dL) Final Creatinine 03/07/2024 06:04:05 2.9 Above high normal 0.6-1.2 (mg/dL) Final Glomerular filtration rate/1.73 sq M.predicted [Volume Rate/Area] in Serum, Plasma or Blood by Creatinine-based formula (CKD-EPI) 03/07/2024 06:04:05 22 Below low normal >=60 (mL/min) Final eGFR is calculated based on the CKD-EPI 2020 equation. Sodium 03/07/2024 06:04:05 141 135-146 (m mol/L) Final Potassium 03/07/2024 06:04:05 4.3 3.5-5.1 (m mol/L) Final Cl 03/07/2024 06:04:05 99 98-107 (mm ol/L) Final CO2 03/07/2024 06:04:05 30 22-32 (mmo l/L) Final Anion gap 03/07/2024 06:04:05 12 7-15 (mmol /L) Final Glucose 03/07/2024 06:04:05 72 70-120 (mg /dL) Final Calcium 03/07/2024 06:04:05 8.3 Below low normal 8.4 -10.2 (mg/dL) Final Performing Location [facility] [place] [address]
--- OUTSIDE RECORDS SUMMARY | 2024-03-13 15:45 | External Medical Summary ---
Author Name Unknown Address Unknown Organization [id number]:[facility] [address] [place] [address] Laboratory Report Ordering Provider Test Date Status MELONY MURCIA 03/07/2024 06:04:05 Final Observation Date Value Abnormality Reference (Units ) Status Ferritin 03/07/2024 06:04:05 1307 Above high normal 30 -400 (ng/mL) Final Performing Location [facility] - [address] [place] [address]
--- OUTSIDE RECORDS SUMMARY | 2024-03-13 15:45 | External Medical Summary ---
Author Name Unknown Address Unknown Organization [id number][place] [place] [address] [place] [address] Laboratory Report Ordering Provider Test Date Status MELONY MURCIA 03/07/2024 06:04:05 Final Observation Date Value Abnormality Reference (Units ) Status Iron 03/07/2024 06:04:05 88 45-176 (ug/dL) Final Iron-binding capacity 03/07/2024 06:04:05 188 Below low normal 250-425 (ug/dL) Final Transferrin Sat % 03/07/2024 06:04:05 47 15-55 (%) Final Performing Location [facility] [place] [address] [place] [address]
--- OUTSIDE RECORDS SUMMARY | 2024-03-13 15:45 | External Medical Summary ---
Author Name Unknown Address Unknown Organization [id number]:[facility] [place] [address] Laboratory Report Ordering Provider Test Date Status MELONY MURCIA 03/07/2024 06:04:05 Final Observation Date Value Abnormality Reference (Units ) Status Phosphate 03/07/2024 06:04:05 3.5 2.5-4.8 (m g/dL) Final Performing Location [facility] [place] [address]
--- NOTE | 2024-03-13 16:46 | Electrocardiogram Report ---
Test Reason : Blood Pressure : */* mmHG Vent. Rate : 74 BPM Atrial Rate : 74 BPM P-R Int : 188 ms QRS Dur : 86 ms QT Int : 404 ms P-R-T Axes : 69 28 90 degrees QTcB Int : 448 ms Normal sinus rhythm Normal ECG No previous ECGs available Confirmed by Roger Butterfield ([id number]) on 03/13/2024 4:46:07 PM Referred By: [facility] Confirmed By: Roger Butterfield
[2024-03-13] MEDS: CINACALCET HCL 90 MG TAB PO SCH (18:00)
[2024-03-13] MEDS: PANTOprazole 40 MG TAB PO SCH (18:00)
[2024-03-13] MEDS: BISOPROLOL FUMARATE 5 MG TAB PO SCH (20:52)
[2024-03-13] MEDS: ATORVASTATIN 20 MG TAB PO SCH (20:53)
[2024-03-13] MEDS: SERTRALINE HCL 50 MG TABLET PO SCH (20:53)
[2024-03-13] MEDS: amLODIPine BESYLATE 5 MG TAB PO SCH (20:53)
[2024-03-14 06:00] LABS: Basophils # (auto) 0.03 K/uL (0.00-0.20); Basophils % (auto) 0.5 %; Eosinophils # (auto) 0.09 K/uL (0.00-0.50); Eosinophils % (auto) 1.5 %; Hematocrit (blood only) 31.1 % (42.0-52.0); Immature Granulocytes # (auto) 0.03 K/uL (0.01-0.20); Immature Granulocytes % (auto) 0.5 %; Lymphocytes # (auto) 0.73 K/uL (1.20-3.40); Lymphocytes % (auto) 12.2 %; Mean Corpuscular Hemoglobin 35.6 pg (25.0-34.0); Mean Corpuscular Hgb Conc 32.2 g/dL (32.0-36.0); Mean Corpuscular Volume 110.7 fL (80.0-100.0); Mean Platelet Volume 10.6 fL (9.4-12.4); Monocytes # (auto) 0.55 K/uL (0.11-0.59); Monocytes % (auto) 9.2 %; Neutrophils # (auto) 4.56 K/uL (1.40-6.50); Neutrophils % (auto) 76.1 %; Platelet Count 166 K/uL (130-400); RDW Coefficient of Variation 19.4 % (11.5-14.5); RDW Standard Deviation 78.1 fL (36.4-46.3); Red Blood Count 2.81 M/uL (4.70-6.10); White Blood Count 5.99 K/ul (4.8-10.8)
[2024-03-14 06:23] LABS: BUN Creatinine Ratio 7.6 (10-20); Calcium 8.7 mg/dl (8.6-10.3); Creatinine Clr Calc Pharmacy 18.4 ml/min; Est GFR (Non-African American) 15.6 ml/min; Magnesium 1.9 mg/dl (1.7-2.4); Potassium 4.2 mmol/L (3.5-5.1)
[2024-03-14 06:47] LABS: Macrocytosis Present; Polychromasia 1+
[2024-03-14 08:07] VITALS: RESP 18
[2024-03-14] MEDS: CALCITRIOL 0.25 MCG CAPSULE PO SCH (08:34)
[2024-03-14] MEDS: traMADol HCL 50 MG TABLET PO PRN (09:28)
--- NOTE | 2024-03-14 11:34 | Discharge Summary ---
Date of Service March 14, 2024 Admission HPI Per Admitting Provider History obtained from patient and records. 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 Recent prolonged confinement at [facility] from February 07 to March 06, 2024 for sigmoid colitis, COPD exacerbation and pneumonia. 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 Patient with sudden onset SOB last night. No unusual cough symptoms or chest pain. Compliant with Wednesday dialysis. O2 sats 60s to 70s upon EMS arrival. Patient placed on BiPAP. Patient brought to ER for evaluation. Medical History as above Surgical History : Prostatectomy, appendectomy Family History : Prostate cancer, breast cancer, brain cancer, DM, heart disease, stroke Personal/Social history : Past tobacco abuse, no EtOH intake, retired salesman Admission Exam Per Admitting Provider GENERAL: Slightly uncomfortable, minimal respiratory distress SKIN: Pallor, warm HEENT: Pale palpebral conjunctivae, no ptosis, dry buccal mucosa, BiPAP in place NECK : Supple, no tenderness CHEST : Decreased breath sounds, no tenderness HEART : RRR, no obvious murmurs ABDOMEN: Some distention, nontender EXTREMITIES : Minimal LE swelling, no LE tenderness, no other conspicuous deformities noted NEUROLOGIC : Coherent, no facial asymmetry, no other gross focality Principal Diagnosis Acute on chronic respiratory respiratory failure with hypoxia ESRD on dialysis Discharge Exam Constitutional + well hydrated; no acute distress Eyes PERRL, conjunctivae normal, anicteric sclerae ENMT external ear and nose normal, oropharynx normal Respiratory On nasal cannula, not in respiratory distress, Diminished breath sounds Cardiovascular Rate/Rhythm: regular rate and regular rhythm Gastrointestinal (Abdomen) normal bowel sounds, soft, nontender, no hepatosplenomegaly Musculoskeletal No pedal edema Neurologic PERRL, EOMI, accommodation nl, no face palsy, no dysarthria Psychiatric A+Ox3, euthymic affect Discharge Data Allergies Allergy/AdvReac Type Severity Reaction Status Date / Time No Known Drug Allergies Allergy Unknown Unknown Verified 03/13/24 04:59 Consultations 03/13/24 05:32 ED Decision to Admit Stat 03/13/24 12:51 Consult Nephrology Routine Ordered Studies 03/13/24 06:15 CT angio chest PE protocol Stat Hospital Course (1) Acute and chronic respiratory failure with hypoxia: History of chronic respiratory failure Steroid-dependent COPD Chronically on 5L NC CTA Chest did not show any PE but noted extensive emphysema, pulm HTN, small bilateral pleural effusions Acute on chronic respiratory failure with hypoxia may be due to volume overload in the setting of advanced COPD Previous paperwork from rehab did note patient's oxygen sat is sensitive to volume Patient back to baseline oxygen requirement Denied any new resp ESRD on HD Continue hemodialysis Mildly elevated troponin May be due to renal function Hypothyroidism Continue home levothyroxine Chronic anemia Hemoglobin at baseline Patient discharged back to [facility] Total Time Total Time Spent Total Time Spent (In Minutes): 35 Total Time Includes: Examination of the Patient, Discharge Planning, Medication Reconciliation and Communication With Other Providers Discharge Plan Discharge Items Patient Disposition: Transfer Inpatient Rehab Fac Reason For Visit: Hypoxia Discharge Diagnosis: Acute on chronic respiratory respiratory failure with hypoxia Activity: Resume your previous activity Non-emergency contact: Primary Care Provider Call non-emergency contact if: you have any medication questions and your symptoms worsen Follow-up/Referrals: Len Ibrahim DO [Primary Care Provider] - Diet: Dialysis Renal and Heart Healthy Addtl Attending Provider Instructions: Mr Kyle You were admitted to the hospital for the above listed diagnosis. You had hemodialysis. You are being discharged back to the rehab facility. Please continue your oxygen It was a pleasure taking care of you. Pending Studies at Discharge: No Stand-Alone Forms: My [facility] Skilled Items Patient informed of condition?: Yes DNR: No Discharge Level of Care: Acute rehab Communicable Disease: No Discharge Prognosis: Stable Lines: None Urinary Catheter: No Medications and DC Order Prescriptions: Continued prednisone 10 mg Tablet 10 mg PO DAILY atorvastatin 20 mg Tablet 20 mg PO PM docusate sodium 50 mg Capsule 50 mg PO DAILY PRN (Reason: Constipation) acetaminophen 650 mg Tablet 650 mg PO Q4H PRN (Reason: Pain, Mild) lidocaine-prilocaine 2.5-2.5 % Cream 1 applic topical BLANK Rx Instructions: QMWF bisoprolol fumarate 5 mg Tablet 5 mg PM amlodipine 10 mg Tablet 10 mg PO PM bisacodyl 10 mg Suppository 10 mg [place] DAILY PRN (Reason: Constipation) pantoprazole 40 mg Tablet,Delayed Release (Dr/Ec) 40 mg PO BIDWMEAL docusate sodium 100 mg Capsule 100 mg PO BID budesonide 0.25 mg/2 mL Suspension For Nebulization See Protocol BID Protocol: Nursing Decision Medication Order Protocol Text: 1. Dispensed by Pharmacy (Requires a written order by the nurse, unless noted otherwise). Artificial Saliva Aerozoin [place] Cepacol Lozenges (in Automated Drug Distribution Machine) Eucerin Cream Lacrilube Lidocaine (Xylocaine) 2% Jelly for urinary catheter insertion) Miconazole (Desenex) Powder [place] Nasal [place] (or generic) 2. On PAR from Supply Distribution (no written order required) A&D Ointment Artificial Tears Biotene Oral [place] Desitin Ointment Dermoplast [place] Eucerin Lotion Hydrogen peroxide Lanolin Lip Savvy Tucks White Petrolatum Zinc Oxide levothyroxine 200 mcg Tablet 200 mcg PO DAILY ondansetron 4 mg Tablet,Disintegrating 4 mg PO Q4-5H PRN (Reason: Nausea And Vomiting) sertraline 50 mg Tablet 50 mg PO QPM calcitriol 0.25 mcg Capsule 0.25 mcg PO BLANK Rx Instructions: Q Tu,Thur,Sat ipratropium bromide 0.02 % Solution 2.5 ml INHALATION QID polyethylene glycol Powder 17 ea miscellaneous DAILY PRN (Reason: Constipation) cinacalcet 90 mg Tablet 90 mg PO BLANK Rx Instructions: Qdinner heparin, porcine (PF) 5,000 unit/mL Syringe 5,000 unit SUBCUT Q12H darbepoetin sno in polysorbat 100 mcg/0.5 mL Syringe 100 mcg BLANK Rx Instructions: Q7days formoterol fumarate 20 mcg/2 mL Solution For Nebulization 2 ml INHALATION BID sacubitril-valsartan 24-26 mg Tablet 1 tab PO BID Discharge Orders: Discharge Order (Routine); Ordered 03/14/24 Ordered By: Valerie Taylor Admission Data Admit Date/Time: 03/13/24 06:18 Attending Provider: aVlerie Taylor I. Admit Provider: Virgil Bennett Primary Care Provider: Len Ibrahim Other Providers: Virgil Bennett; Ev Dewitt; Hma Hopper; Sylvester Oh; Xavier Cruz; Saray Burger; [facility] Other Interventions: Discharge Summary Assessment (RN) Last Done: 03/14/24 13:44
[2024-03-14 11:40] VITALS: TEMP 97.7; O2SAT 93
[2024-03-14 13:45] VITALS: BP 159/80
[2024-03-14 15:00] VITALS: PULSE 71
[2024-03-15] MEDS ORDERED: EPOETIN ALFA 10,000 UNITS/ML VIAL IV ONE (07:00)
[2024-03-15] MEDS ORDERED: SODIUM CHLORIDE 0.9% 1,000 ML IV PRN (07:00)
--- NOTE | 2024-03-15 07:43 | Communication Note ---
Code 44 attestation. The chart of Lyndon Montgomery date of 1955 was reviewed and noted that he was discharged appropriately by the attending physician. By CMS guidelines, a determination that the admission or continued stay is not medically necessary has been made by a member of the UR committee and a physician for this hospital stay, therefore a Code 44 will be completed and the Inpatient admission will be changed to outpatient. Dr. Bertrand Pearl Member UR committee
== END 2024-03-14 17:21 ==
LOC: ED 04:31 → 4W 06:18 → INTOOBSV 06:18 → 4W 08:46